=== PATIENT | male | born 1980 | race Caucasian/White ===

== ENCOUNTER 2017-02-22 13:24 | Outpatient (CLI) | payer OTHER | END 2017-02-22 13:25 | disposition home or self-care (01) | LOC: SC 13:24 | PROVIDERS: ATTEND Internal Medicine Pulmonary Disease | DX: R09.02 Hypoxemia (principal); R06.83 Snoring; I10 Essential (primary) hypertension | CPT/HCPCS: 99203; 99212 ==

== ENCOUNTER 2017-04-05 19:30 | Outpatient (CLI) | payer OTHER | END 2017-04-05 19:31 | disposition home or self-care (01) | LOC: SC 19:30 | PROVIDERS: ATTEND Internal Medicine Pulmonary Disease | DX: G47.61 Periodic limb movement disorder (principal); I10 Essential (primary) hypertension | CPT/HCPCS: 95810 ==

== ENCOUNTER 2017-04-17 11:17 | Outpatient (CLI) | payer OTHER | END 2017-04-17 11:18 | disposition home or self-care (01) | LOC: SC 11:17 | PROVIDERS: ATTEND Specialist | DX: R06.83 Snoring (principal) | CPT/HCPCS: 99212; 99214 ==

== ENCOUNTER 2017-10-15 10:17 | Emergency (ER) | payer OTHER ==
[2017-10-15 11:24] LABS: BASOPHILS % (AUTO) 0.4 %; EOSINOPHILS # (AUTO) 0.1 10^3/uL (0.0-0.7); EOSINOPHILS % (AUTO) 1.2 %; HGB - HEMOGLOBIN 16.7 g/dL (14.0-18.0); LYMPHOCYTES # (AUTO) 0.6 10^3/uL (1.5-3.5); LYMPHOCYTES % (AUTO) 6.6 %; MEAN CORPUSCULAR HEMOGLOBIN 30.6 pg (27.0-31.0); MEAN CORPUSCULAR VOLUME 87.5 fL (80.0-94.0); MEAN PLATELET VOLUME 7.8 fL (7.4-11.4); MONOCYTES # (AUTO) 0.4 10^3/uL (0.0-1.0); MONOCYTES % (AUTO) 4.1 %; NEUTROPHILS # (AUTO) 8.5 10^3/uL (1.5-6.6); NEUTROPHILS % (AUTO) 87.7 %; PLT - PLATELET COUNT 236 10^3/uL (130-450); RED BLOOD COUNT 5.46 10^6/uL (4.70-6.10); RED CELL DISTRIBUTION WIDTH 13.7 % (12.0-15.0); WHITE BLOOD COUNT 9.7 x10^3/uL (4.8-10.8)
[2017-10-15 11:27] LABS: BILIRUBIN,URINE NEGATIVE (NEGATIVE); GLUCOSE, URINE (UA) NEGATIVE (NEGATIVE); KETONES,URINE (UA) NEGATIVE (NEGATIVE); LEUKOCYTE ESTERASE, URINE NEGATIVE (NEGATIVE); NITRITE,URINE NEGATIVE (NEGATIVE); OCCULT BLOOD,URINE NEGATIVE (NEGATIVE); PH,URINE 6.5 PH (5.0-7.5); PROTEIN,URINE NEGATIVE (NEGATIVE); UROBILINOGEN,URINE 0.2 (NORMAL) E.U./dL (NORMAL)
[2017-10-15 11:36] LABS: ALBUMIN 5.3 g/dL (3.2-5.5); ALBUMIN/GLOBULIN RATIO 1.7 (1.0-2.2); CALCIUM 9.6 mg/dL (8.5-10.3); CREATININE 1.2 mg/dL (0.6-1.2); TOTAL PROTEIN 8.5 g/dL (6.7-8.2)
[2017-10-15 11:54] LABS: CLARITY,URINE CLEAR (CLEAR)
--- NOTE | 2017-10-15 12:55 | ED Physician Documentation ---
PD HPI NVD - Stated complaint Stated Complaint: N/V/D - Chief complaint Chief Complaint: Abd Pain - History obtained from History obtained from: Patient - History of Present Illness Timing - onset: How many hours ago (6), Today (at about 4 am; felt okay going to bed last night and felt normal yesterday. Family not sick.) Timing - duration: Hours Timing - details: Abrupt onset, Still present Associated symptoms: Abdominal pain (crampy upper abd; mostly the vomiting an ddiarrhea symptoms were the main complaint), Loss of appetite. No: Fever, Hematemesis, Hematochezia, Dizzy, Near syncope / syncope Contributing factors: No: Sick contact, Bad food, Travel, Recent antibiotics Improved by: No: Vomiting Worsened by: Eating Similar symptoms before: Has not had sx before Recently seen: Not recently seen Review of Systems Constitutional: denies: Fever Nose: denies: Rhinorrhea / runny nose, Congestion Throat: denies: Sore throat Cardiac: denies: Chest pain / pressure Respiratory: denies: Cough GI: reports: Abdominal Pain, Nausea, Vomiting, Diarrhea : denies: Dysuria, Frequency Skin: denies: Rash, Lesions Musculoskeletal: denies: Neck pain, Back pain PD PAST MEDICAL HISTORY - Past Medical History Past Medical History: Yes Cardiovascular: Hypertension - Past Surgical History Past Surgical History: Yes - Present Medications Home Medications: Ambulatory Orders Medication Instructions Recorded Confirmed Famotidine [Pepcid] 20 mg PO ONCE #15 tablet 10/15/17 Gabapentin 300 mg PO TID 10/15/17 10/15/17 Lisinopril/Hydrochlorothiazide 1 each PO DAILY 10/15/17 10/15/17 [Lisinopril-Hctz 10-12.5 mg Tab] Ondansetron Odt [Zofran] 4 mg TL Q6H PRN #15 tablet 10/15/17 Tramadol HCl 50 mg PO Q6H PRN #15 tablet 10/15/17 - Allergies Allergies/Adverse Reactions: Allergies Allergy/AdvReac Type Severity Reaction Status Date / Time No Known Drug Allergies Allergy Verified 10/15/17 12:54 - Social History Does the pt smoke?: No Smoking Status: Never smoker Does the pt drink ETOH?: No Does the pt have substance abuse?: No - Immunizations Immunizations are current?: Yes PD ED PE NORMAL - Vitals Vital signs reviewed: Yes - General General: Alert and oriented X 3, Well developed/nourished, Other (holding emesis bag; looks like he does not feel well. conversant and alert. ) - HEENT HEENT: Ears normal, Pharynx benign. No: Moist mucous membranes - Neck Neck: Supple, no meningeal sign, No adenopathy - Cardiac Cardiac: RRR (tachycardic though), No murmur - Respiratory Respiratory: Clear bilaterally - Abdomen Abdomen: Normal bowel sounds, Soft, Non tender, Non distended, No organomegaly - Male Male : Deferred - Rectal Rectal: Deferred - Back Back: No CVA TTP - Derm Derm: Warm and dry. No: Normal color (pale) - Extremities Extremities: No deformity, Normal ROM s pain - Neuro Neuro: Alert and oriented X 3, No motor deficit, Normal speech Results - Vitals Vitals: Oxygen O2 Source Room air - Labs Labs: Laboratory Tests 10/15/17 10/15/17 10/15/17 11:05 11:20 11:20 WBC 9.7 RBC 5.46 Hgb 16.7 Hct 47.7 MCV 87.5 MCH 30.6 MCHC 35.0 RDW 13.7 Plt Count 236 MPV 7.8 Neut # 8.5 H Lymph # 0.6 L Grand # 0.4 Eos # 0.1 Baso # 0.0 Absolute Nucleated RBC 0.00 Nucleated RBC % 0.0 Sodium 135 Potassium 4.3 Chloride 98 L Carbon Dioxide 29 Anion Gap 8.0 BUN 14 Creatinine 1.2 Estimated GFR (MDRD) 68 L Glucose 111 H Calcium 9.6 Total Bilirubin 1.0 AST 33 ALT 53 Alkaline Phosphatase 49 Total Protein 8.5 H Albumin 5.3 Globulin 3.2 Albumin/Globulin Ratio 1.7 Lipase 10 L Urine Color DARK YELLOW Urine Clarity CLEAR Urine pH 6.5 Ur Specific [place] 1.015 Urine Protein NEGATIVE Urine Glucose (UA) NEGATIVE Urine Ketones NEGATIVE Urine Occult Blood NEGATIVE Urine Nitrite NEGATIVE Urine Bilirubin NEGATIVE Urine Urobilinogen 0.2 (NORMAL) Ur Leukocyte Esterase NEGATIVE Ur Microscopic Review NOT INDICATED Urine Culture Comments NOT INDICATED PD MEDICAL DECISION MAKING - ED course Complexity details: re-evaluated patient (improved with IV fluids and meds. Still mild nausea but able to take fluids. ), considered differential, d/w patient Departure - Departure Disposition: 01 Home, Self Care Clinical Impression: Nausea vomiting and diarrhea, Viral gastroenteritis Condition: Stable Record reviewed to determine appropriate education?: Yes Instructions: ED Gastroenteritis Viral Follow-Up: MICHAEL DANIELS MD [Primary Care Provider] - Prescriptions: Famotidine [Pepcid] 20 mg PO ONCE #15 tablet Ondansetron Odt [Zofran] 4 mg TL Q6H PRN #15 tablet PRN Reason: Nausea / Vomiting Tramadol HCl 50 mg PO Q6H PRN #15 tablet PRN Reason: Pain Comments: Home and rest. Drink small frequent fluids. Start with bland food and progress diet as able. Tylenol or ibuprofen if needed for pain and add tramadol if needed for worse pains and headache. Ondansetron if needed for nausea and vomiting and take 1-2 every 4-6 hours. Rest for 1-2 days. Recheck if not better in a couple of days. Your stomach will be irritated from this and take famotidine daily for 1-2 weeks. Forms: Activity restrictions Discharge Date/Time: 10/15/17 15:07
[2017-10-15] MEDS ORDERED: FAMOTIDINE 20 MG/2 ML VIAL IVP STA (13:10)
[2017-10-15] MEDS ORDERED: ONDANSETRON 4 MG/2 ML VIAL IVP STA ×2 (13:10→14:12)
[2017-10-15] MEDS ORDERED: SODIUM CHLORIDE 0.9% 1,000 ML IV ONE ×2 (13:10→13:11)
[2017-10-15] MEDS ORDERED: KETOROLAC 60 MG/2 ML VIAL IVP STA (13:10)
[2017-10-15] MEDS ORDERED: ACETAMINOPHEN 1,000 MG/100 ML 100 ML IV STA (14:12)
[2017-10-15 15:08] VITALS: BP 121/75
== END 2017-10-15 15:07 | disposition home or self-care (01) ==
LOC: ED 10:17
DX: A08.4 Viral intestinal infection, unspecified (principal); I10 Essential (primary) hypertension
CPT/HCPCS: 36415; 80053; 81003; 83690; 85025; 96361; 96365; 96375; 96376; 99283; J0131; 81001; 87086

== ENCOUNTER 2019-09-21 09:44 | Emergency (ER) | payer OTHER ==
--- NOTE | 2019-09-21 10:15 | ED Physician Documentation ---
PD HPI URI - Stated complaint Stated Complaint: SOA,FEVER,COUGH - Chief complaint Chief Complaint: Fever - History obtained from History obtained from: Patient - History of Present Illness Timing - onset: How many weeks ago (has had some cough and congestion, aches for a week. Was starting to feel better but now with worse cough and feeling chest tightness. Feverish still. Feels not well enough for work.) Associated symptoms: Fever, Nasal congestion, Productive cough, Dyspnea (the past 2 days). No: NVD Contributing factors: No: Sick contact, Travel, Immunocompromised, COPD / asthma Similar symptoms before: Has not had sx before Recently seen: Not recently seen Review of Systems Constitutional: reports: Fever, Chills Ears: denies: Ear pain, Drainage/discharge Nose: reports: Rhinorrhea / runny nose, Congestion Throat: denies: Sore throat Cardiac: denies: Chest pain / pressure Respiratory: reports: Dyspnea, Cough, Wheezing GI: denies: Abdominal Pain, Nausea, Vomiting, Diarrhea Neurologic: reports: Headache. denies: Confused, Altered mental status PD PAST MEDICAL HISTORY - Past Medical History Cardiovascular: Hypertension, Pulmonary embolism Respiratory: Asthma Neuro: None, Peripheral neuropathy Endocrine/Autoimmune: None GI: None : None Psych: None Musculoskeletal: Chronic back pain Derm: Eczema - Past Surgical History Past Surgical History: Yes - Present Medications Home Medications: Ambulatory Orders Medication Instructions Recorded Confirmed Gabapentin 600 mg PO TID 10/15/17 09/21/19 Lisinopril/Hydrochlorothiazide 1 each PO DAILY 10/15/17 09/21/19 [Lisinopril-Hctz 10-12.5 mg Tab] Albuterol Sulfate [Albuterol 2 puffs IH QID #1 hfa.aer.ad 09/21/19 Sulfate Hfa] Benzonatate [Tessalon Perle] 100 mg PO TID PRN #30 capsule 09/21/19 Doxycycline Monohydrate 100 mg PO BID #14 tablet 09/21/19 dexAMETHasone [Decadron] 4 mg PO DAILY #5 tablet 09/21/19 - Allergies Allergies/Adverse Reactions: Allergies Allergy/AdvReac Type Severity Reaction Status Date / Time No Known Drug Allergies Allergy Verified 09/21/19 09:48 - Social History Does the pt smoke?: No Smoking Status: Never smoker Does the pt drink ETOH?: No Does the pt have substance abuse?: No - Immunizations Immunizations are current?: Yes - POLST Patient has POLST: No PD ED PE NORMAL - Vitals Vital signs reviewed: Yes - General General: Alert and oriented X 3, No acute distress, Well developed/nourished - HEENT HEENT: Ears normal, Pharynx benign - Neck Neck: Supple, no meningeal sign, No adenopathy - Cardiac Cardiac: RRR, No murmur - Respiratory Respiratory: No: Clear bilaterally (midl coarse sounds right mid lung field. Else clear with respirations but wheezing sound with cough. ) - Abdomen Abdomen: Soft, Non tender - Derm Derm: Normal color, Warm and dry - Extremities Extremities: No tenderness to palpate, Normal ROM s pain, No edema, No calf tenderness / cord - Neuro Neuro: Alert and oriented X 3, No motor deficit, Normal speech Results - Vitals Vitals: Vital Signs - 24 hr 09/21/19 09/21/19 09/21/19 09:48 10:07 11:07 Temperature 36.7 C 37 C 36.9 C Heart Rate 77 66 76 Respiratory 18 20 18 Rate Blood Pressure 148/107 H 147/105 H 143/89 H O2 Saturation 97 97 97 Oxygen O2 Source Room air PD MEDICAL DECISION MAKING - ED course Complexity details: considered differential (has had URI symptoms for a week and now worse cough and feverish. ), d/w patient Departure - Departure Disposition: 01 Home, Self Care Clinical Impression: Upper respiratory infection Qualifiers: URI type: unspecified URI Qualified Code(s): J06.9 - Acute upper respiratory infection, unspecified Acute bronchitis Qualifiers: Bronchitis organism: unspecified organism Qualified Code(s): J20.9 - Acute bronchitis, unspecified Condition: Stable Record reviewed to determine appropriate education?: Yes Instructions: ED Upper Resp Infec Abx Tx Follow-Up: MICHAEL DANIELS MD [Primary Care Provider] - Prescriptions: Albuterol Sulfate [Albuterol Sulfate Hfa] 2 puffs IH QID #1 hfa.aer.ad Benzonatate [Tessalon Perle] 100 mg PO TID PRN #30 capsule PRN Reason: Cough dexAMETHasone [Decadron] 4 mg PO DAILY #5 tablet Doxycycline Monohydrate 100 mg PO BID #14 tablet Comments: Sounds like you are still sick in may be transforming into bronchitis. Still stay off work for another 3 days. Stay well-hydrated. Tylenol or ibuprofen for fevers or pains. Use an albuterol inhaler 2 puffs 4 times a day to improve airflow and reduce coughing. Decadron steroid for bronchial inflammation will help as well. Add Tessalon if needed for cough suppression. Add doxycycline for potential bacterial involvement at this time. Recheck if not improving well over the next few days. Forms: Activity restrictions Discharge Date/Time: 09/21/19 11:11
[2019-09-21] MEDS ORDERED: CHERRY SYRUP 10 ML UDC PO ONE (10:26)
[2019-09-21] MEDS ORDERED: DEXAMETHASONE 10 MG/ML VIAL PO STA (10:26)
[2019-09-21] MEDS ORDERED: BENZONATATE 100 MG CAPSULE PO STA (10:26)
[2019-09-21] MEDS ORDERED: DOXYCYCLINE 100 MG TABLET PO STA (10:26)
[2019-09-21 11:08] VITALS: BP 143/89
== END 2019-09-21 11:11 | disposition home or self-care (01) ==
LOC: ED 09:44
DX: J06.9 Acute upper respiratory infection, unspecified (principal); J20.9 Acute bronchitis, unspecified; J45.909 Unspecified asthma, uncomplicated; I10 Essential (primary) hypertension
CPT/HCPCS: 99284; A9270

== ENCOUNTER 2019-09-30 18:56 | Emergency (ER) | payer OTHER ==
--- NOTE | 2019-09-30 19:19 | ED Physician Documentation ---
History of Present Illness - Stated complaint Stated Complaint: ABD PX - Chief complaint Chief Complaint: Abd Pain - Additonal information Additional information: This is a 38-year-old male who presents with epigastric pain for last 5 days. He was seen and diagnosed with bronchitis last Sunday, he was given dexamethasone as well as doxycycline, he took these and after taking them he developed some dull epigastric discomfort. He denies nausea, vomiting, diarrhea. He denies any chest pain or shortness of breath. Discomfort is been persistent not worsening or getting better, so he presented tonight. It does not change with food he is able to eat regularly without issue. He denies any history of abdominal surgeries. Pain is currently mild to moderate in severity, nonradiating. Review of Systems Constitutional: denies: Fever Cardiac: denies: Chest pain / pressure Respiratory: denies: Dyspnea GI: reports: Abdominal Pain. denies: Nausea, Vomiting : denies: Dysuria Skin: denies: Rash Immunocompromised: denies: Immunocompromised PD PAST MEDICAL HISTORY - Past Medical History Cardiovascular: Hypertension, Pulmonary embolism Respiratory: Asthma Neuro: None, Peripheral neuropathy Endocrine/Autoimmune: None GI: None : None Psych: None Musculoskeletal: Chronic back pain Derm: Eczema - Past Surgical History Past Surgical History: Yes - Present Medications Home Medications: Ambulatory Orders Medication Instructions Recorded Confirmed Gabapentin 600 mg PO TID 10/15/17 09/21/19 Lisinopril/Hydrochlorothiazide 1 each PO DAILY 10/15/17 09/21/19 [Lisinopril-Hctz 10-12.5 mg Tab] Albuterol Sulfate [Albuterol 2 puffs IH QID #1 hfa.aer.ad 09/21/19 Sulfate Hfa] Benzonatate [Tessalon Perle] 100 mg PO TID PRN #30 capsule 09/21/19 Doxycycline Monohydrate 100 mg PO BID #14 tablet 09/21/19 dexAMETHasone [Decadron] 4 mg PO DAILY #5 tablet 09/21/19 Famotidine [Acid Controller] 20 mg PO DAILY #14 tablet 09/30/19 Omeprazole 40 mg PO DAILY 14 Days #30 09/30/19 capsule.dr - Allergies Allergies/Adverse Reactions: Allergies Allergy/AdvReac Type Severity Reaction Status Date / Time No Known Drug Allergies Allergy Verified 09/30/19 19:01 - Social History Does the pt smoke?: No Smoking Status: Never smoker Does the pt drink ETOH?: No Does the pt have substance abuse?: No - Immunizations Immunizations are current?: Yes - POLST Patient has POLST: No PD ED PE NORMAL - Vitals Vital signs reviewed: Yes - General General: Alert and oriented X 3, No acute distress - HEENT HEENT: PERRL - Neck Neck: Supple, no meningeal sign - Cardiac Cardiac: RRR, No murmur - Respiratory Respiratory: Clear bilaterally - Abdomen Abdomen: Other (Abdomen is flat, non-distended. Patient has mild tenderness in the midepigastrium, no specific right upper quadrant or left upper quadrant tenderness, negative Garnica sign, no lower abdominal tenderness to deep palpation. No guarding.) - Derm Derm: Warm and dry - Extremities Extremities: No deformity - Neuro Neuro: Alert and oriented X 3 - Psych Psych: Normal mood, Normal affect Results - Vitals Vitals: Oxygen O2 Source Room air - EKG (time done) 19:30 Other comments: Other comments (Rate 59, Rhythm sinus, there is no significant ST elevation or depression, no abnormal T wave changes. Intervals within normal limits.) - Labs Labs: Laboratory Tests 09/30/19 09/30/19 19:15 19:15 WBC 5.8 RBC 4.94 Hgb 15.3 Hct 44.3 MCV 89.7 MCH 31.0 MCHC 34.5 RDW 13.2 Plt Count 223 MPV 9.6 Neut # (Auto) 2.5 Lymph # (Auto) 2.6 [place] # (Auto) 0.4 Eos # (Auto) 0.2 Baso # (Auto) 0.0 Absolute Nucleated RBC 0.00 Nucleated RBC % 0.0 Sodium 139 Potassium 4.0 Chloride 99 L Carbon Dioxide 30 Anion Gap 10.0 BUN 14 Creatinine 1.0 Estimated GFR (MDRD) 83 L Glucose 121 H Calcium 10.4 H Total Bilirubin 0.9 AST 31 ALT 58 Alkaline Phosphatase 42 Total Protein 7.5 Albumin 4.5 Globulin 3.0 Albumin/Globulin Ratio 1.5 Lipase 29 PD MEDICAL DECISION MAKING - ED course Complexity details: considered differential (Gastritis, peptic ulcer disease, Medication side effect, biliary colic/cholecystitis, pancreatitis, ACS) ED course: Patient is very well-appearing on examination, he has minimal epigastric tenderness to palpation. His vital signs are within normal limits. EKG shows no convincing signs of ischemia, and given the location of discomfort in his rep roducible pain with palpation cardiac cause of his epigastric discomfort is highly unlikely. Labs are obtained his CBC is unremarkable and his CMP also unremarkable with no signs of LFT elevations, lipase is normal. He was given a GI cocktail and famotidine, afterwards he did feel improvement. Gastritis appears likely, do not see sign of acute abdominal pathology at this time, especially given he is eating normally and has no nausea or vomiting or other concerning symptoms. No focal RUQ tenderness, negative Garnica's sign. We discussed return precautions, trial of PPI plus H2 trisha, and PCP follow-up, patient was discharged home in good condition. Departure - Departure Disposition: Home, Self Care Clinical Impression: Epigastric pain Condition: Good Instructions: ED Epigastric Pain [facility] Follow-Up: MICHAEL DANIELS MD [Primary Care Provider] - Prescriptions: Famotidine [Acid Controller] 20 mg PO DAILY #14 tablet Omeprazole 40 mg PO DAILY 14 Days #30 capsule. Comments: Your labs and EKG today were reassuring. This may be gastritis or irritation of your stomach, try the acid blocking medications as we discussed. If you are developing worsening or new concerning symptoms such as increasing pain pain that is localizing to one side of abdomen such as the right upper quadrant or right lower quadrant, vomiting, fever, return to the emergency department. Discharge Date/Time: 09/30/19 20:56
[2019-09-30] MEDS ORDERED: GI COCKTAIL 120 ML BOTTLE PO STA (19:21)
[2019-09-30] MEDS ORDERED: FAMOTIDINE 20 MG/2 ML VIAL IVP STA (19:24)
[2019-09-30 19:28] LABS: BASOPHILS % (AUTO) 0.7 %; EOSINOPHILS # (AUTO) 0.2 10^3/uL (0.0-0.7); EOSINOPHILS % (AUTO) 3.6 %; HGB - HEMOGLOBIN 15.3 g/dL (14.0-18.0); LYMPHOCYTES # (AUTO) 2.6 10^3/uL (1.5-3.5); LYMPHOCYTES % (AUTO) 45.5 %; MEAN CORPUSCULAR HGB CONC 34.5 g/dL (32.0-36.0); MEAN CORPUSCULAR VOLUME 89.7 fL (80.0-94.0); MEAN PLATELET VOLUME 9.6 fL (7.4-11.4); MONOCYTES # (AUTO) 0.4 10^3/uL (0.0-1.0); MONOCYTES % (AUTO) 6.2 %; NEUTROPHILS # (AUTO) 2.5 10^3/uL (1.5-6.6); NEUTROPHILS % (AUTO) 43.7 %; PLT - PLATELET COUNT 223 10^3/uL (130-450); RED BLOOD COUNT 4.94 10^6/uL (4.70-6.10); RED CELL DISTRIBUTION WIDTH 13.2 % (12.0-15.0); WHITE BLOOD COUNT 5.8 x10^3/uL (4.8-10.8)
[2019-09-30 19:40] LABS: ALBUMIN 4.5 g/dL (3.2-5.5); ALBUMIN/GLOBULIN RATIO 1.5 (1.0-2.2); BILIRUBIN,TOTAL 0.9 mg/dL (0.2-1.0); CALCIUM 10.4 mg/dL (8.5-10.3); TOTAL PROTEIN 7.5 g/dL (6.7-8.2)
[2019-09-30] MEDS ORDERED: MAG HYDROX/AL HYDROX/SIMETH 30 ML UDC PO STA (19:44)
[2019-09-30 20:43] VITALS: BP 126/90
[2019-09-30] MEDS ORDERED: PANTOPRAZOLE 40 MG VIAL IVP STA (20:47)
== END 2019-09-30 20:56 | disposition home or self-care (01) ==
LOC: ED 18:56
DX: R10.13 Epigastric pain (principal); I10 Essential (primary) hypertension
CPT/HCPCS: 36415; 80053; 83690; 85025; 93005; 96374; 96375; 99283; 99284; A9270

== ENCOUNTER 2021-04-07 12:04 | Emergency (ER) | payer OTHER ==
[2021-04-07 12:36] LABS: RAPID STREP SCREEN Negative (Negative)
[2021-04-07] MEDS ORDERED: DEXAMETHASONE 10 MG/ML VIAL PO STA (13:48)
[2021-04-07] MEDS ORDERED: CHERRY SYRUP 10 ML UDC PO ONE (13:48)
--- NOTE | 2021-04-07 14:09 | ED Physician Documentation ---
History of Present Illness - Stated complaint Stated Complaint: SOAR THROAT/BAUGH/COUGH - Chief complaint Chief Complaint: Heent - Additonal information Additional information: 40-year-old male presents emergency department for evaluation of 4 days sore throat. He was here in the emergency department with his son similarly about 5 days ago. His son tested positive for strep and is currently on penicillin. He has no fevers. No dysphonia. No tonsillar exudate. He does have tender anterior cervical lymphadenopathy. No cough. [place] He is fully vaccinated for COVID-19. Review of Systems Constitutional: denies: Fever, Chills, Myalgias Eyes: reports: Reviewed and negative Ears: reports: Reviewed and negative Nose: denies: Rhinorrhea / runny nose, Congestion Throat: reports: Sore throat. denies: Swollen tonsils, Swallowed foreign body Cardiac: reports: Reviewed and negative Respiratory: reports: Reviewed and negative GI: reports: Reviewed and negative : reports: Reviewed and negative PD PAST MEDICAL HISTORY - Past Medical History Cardiovascular: Hypertension, Pulmonary embolism Respiratory: Asthma Neuro: None, Peripheral neuropathy Endocrine/Autoimmune: None GI: None : None Psych: None Musculoskeletal: Chronic back pain Derm: Eczema - Past Surgical History Past Surgical History: Yes - Present Medications Home Medications: Ambulatory Orders Medication Instructions Recorded Confirmed Gabapentin 600 mg PO TID 10/15/17 09/21/19 Lisinopril/Hydrochlorothiazide 1 each PO DAILY 10/15/17 09/21/19 [Lisinopril-Hctz 10-12.5 mg Tab] Albuterol Sulfate [Albuterol 2 puffs IH QID #1 hfa.aer.ad 09/21/19 Sulfate Hfa] Benzonatate [Tessalon Perle] 100 mg PO TID PRN #30 capsule 09/21/19 Doxycycline Monohydrate 100 mg PO BID #14 tablet 09/21/19 dexAMETHasone [Decadron] 4 mg PO DAILY #5 tablet 09/21/19 Famotidine [Acid Controller] 20 mg PO DAILY #14 tablet 09/30/19 Omeprazole 40 mg PO DAILY 14 Days #30 09/30/19 capsule.dr - Allergies Allergies/Adverse Reactions: Allergies Allergy/AdvReac Type Severity Reaction Status Date / Time No Known Drug Allergies Allergy Verified 09/30/19 19:01 - Social History Does the pt smoke?: No Smoking Status: Never smoker Does the pt drink ETOH?: No Does the pt have substance abuse?: No - Immunizations Immunizations are current?: Yes - POLST Patient has POLST: No PD ED PE NORMAL - General General: Alert and oriented X 3, No acute distress - HEENT HEENT: PERRL, Ears normal, Moist mucous membranes, Other (Mild posterior oropharynx erythema without tonsillar exudate. Uvula is midline. No soft palate assymmetry or swelling. Normal phonation. Full range of motion of ne ck.) - Neck Neck: Supple, no meningeal sign. No: No adenopathy (Tender bilateral anterior cervical lymphadenopathy.) - Cardiac Cardiac: RRR, No murmur - Respiratory Respiratory: Clear bilaterally - Abdomen Abdomen: Normal bowel sounds, Soft, Non tender, Non distended - Back Back: No CVA TTP, No spinal TTP - Derm Derm: Normal color, Warm and dry, No rash - Extremities Extremities: No deformity, No tenderness to palpate, Normal ROM s pain Results - Vitals Vitals: Vital Signs - 24 hr 04/07/21 12:19 Temperature 36.4 C L Heart Rate 88 Respiratory 16 Rate Blood Pressure 142/93 H O2 Saturation 99 Oxygen O2 Source Room air - Labs Labs: Laboratory Tests 04/07/21 12:24 Group A Strep Rapid Negative PD MEDICAL DECISION MAKING - ED course Complexity details: reviewed results, re-evaluated patient, considered differential, d/w patient ED course: 40-year-old male presents emergency department for evaluation of a sore throat that began 4 days ago. His son recently tested positive for strep and is on penicillin. This gentleman has a negative rapid strep today. He has no tonsillar exudate or fevers. Will defer antibiotics unless the culture is positive. Given Decadron here in the emergency department. On exam no findings consistent with an RPA or peritonsillar abscess. Emergent worrisome return precautions were discussed. Departure - Departure Disposition: 01 Home, Self Care Clinical Impression: Pharyngitis Qualifiers: Pharyngitis/tonsillitis etiology: unspecified etiology Qualified Code(s): J02.9 - Acute pharyngitis, unspecified Condition: Stable Record reviewed to determine appropriate education?: Yes Instructions: ED Strep Pharyngitis Poss Comments: Joey you are seen in the ER today for a sore throat. Your rapid strep is negative. We are sending the swab for culture. If it does show that you have a bacterial infection we will notify you and call in antibiotics. You are given a one-time dose of Decadron, a steroid here in the emergency department which should help with the sore throat that you have been experiencing. I recommend that you continue to gargle with warm salt water. If any point you feel your symptoms are worsening, you develop fevers higher than 103, you cannot swallow normally or have a high-pitched voice please return immediately to the ER for a second evaluation.
[2021-04-07 14:13] VITALS: BP 139/91
== END 2021-04-07 14:14 | disposition home or self-care (01) ==
LOC: ED 12:04
DX: J02.9 Acute pharyngitis, unspecified (principal)
CPT/HCPCS: 87070; 87430; 99283; A9270

== ENCOUNTER 2021-06-04 21:38 | Emergency (ER) | payer OTHER ==
--- NOTE | 2021-06-05 00:31 | XRAY Report ---
PROCEDURE: Foot 3 View RT INDICATIONS: distal 1st metatarsal pain TECHNIQUE: 3 views of the foot were acquired. COMPARISON: None FINDINGS: Bones: No fractures or dislocations. No suspicious bony lesions. Soft tissues: No tibiotalar joint effusion. Achilles tendon appears normal. IMPRESSION: No visualized acute fracture or dislocation. However, occult injury cannot be excluded. Recommend eevlia rt interval imaging follow-up in 7-10 days as clinically indicated for additional evaluation. Reviewed by: Samia Livingston MD on 06/05/2021 12:30 AM [facility] Approved by: Samia Livingston MD on 06/05/2021 12:30 AM [facility] Station ID: [id number]
--- NOTE | 2021-06-05 00:52 | ED Physician Documentation ---
PD HPI LOWER EXT INJURY - Stated complaint Stated Complaint: R FT PX - Chief complaint Chief Complaint: Ext Problem - History obtained from History obtained from: Patient - History of Present Illness PD HPI LOW EXT INJURY LOCATION: Right, Foot Type of injury: Other (The patient has peripheral neuropathy to both of his feet and is uncertain how he may have injured this.) Timing - onset: How many weeks ago (2) Timing - duration: Days (4) Timing - details: Gradual onset, Still present Improved by: Rest Worsened by: Moving, Palpating Associated symptoms: Swelling, Discolored. No: Weakness, Numbness Contributing factors: No: Anticoagulated Similar symptoms before: Has not had sx before Recently seen: Not recently seen - Additional information Additional information: 40-year-old male with a history of spinal surgery resulting in numbness to the dorsum of both of his feet has now developed pain to the right great toe over the medial aspect of the foot. He does not have pain just with movement of the toe joint but with direct palpation over the distal metacarpal. He has some redness and swelling associated with this and very tender skin. He denies difficulty with the bed sheets and does not have a history of gout. Review of Systems Constitutional: denies: Fever Ears: denies: Ear pain Nose: denies: Congestion Throat: denies: Sore throat Respiratory: denies: Cough GI: denies: Vomiting PD PAST MEDICAL HISTORY - Past Medical History Past Medical History: Yes Cardiovascular: Hypertension, Pulmonary embolism Respiratory: Asthma Neuro: None, Peripheral neuropathy Endocrine/Autoimmune: None GI: None : None Psych: None Musculoskeletal: Chronic back pain Derm: Eczema - Past Surgical History Past Surgical History: Yes - Present Medications Home Medications: Ambulatory Orders Medication Instructions Recorded Confirmed Gabapentin 900 mg PO TID 10/15/17 06/04/21 Lisinopril/Hydrochlorothiazide 1 each PO DAILY 06/04/21 06/04/21 [Zestoretic 20-12.5 mg Tablet] Amox/Clav 875/125 [Augmentin 1 tablet PO Q12H 10 Days #10 tablet 06/05/21 875/125 Tab] - Allergies Allergies/Adverse Reactions: Allergies Allergy/AdvReac Type Severity Reaction Status Date / Time No Known Drug Allergies Allergy Verified 09/30/19 19:01 - Social History Does the pt smoke?: No Smoking Status: Never smoker Does the pt drink ETOH?: No Does the pt have substance abuse?: No - Immunizations Immunizations are current?: Yes - POLST Patient has POLST: No PD ED PE NORMAL - General General: Alert and oriented X 3, No acute distress, Well developed/nourished - HEENT HEENT: Atraumatic, PERRL, EOMI - Respiratory Respiratory: No respiratory distress - Derm Derm: Normal color, Warm and dry, No rash - Extremities Extremities: Other (There is swelling and point tenderness over the distal first metatarsal. On the right foot. There is some erythema overlying this with easy blanching. The area is mildly tender. There is not significant pain associated with movement of the joint itself. 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, No motor deficit, No sensory deficit, Normal speech Eye Opening: Spontaneous Motor: Obeys Commands Verbal: Oriented GCS Score: 15 - Psych Psych: Normal mood, Normal affect Results - Vitals Vitals: Vital Signs - 24 hr 06/04/21 06/05/21 06/05/21 21:40 00:57 01:01 Temperature 36.1 C L 36.1 C L Heart Rate 87 74 74 Respiratory 16 18 16 Rate Blood Pressure 126/88 H 125/86 H 125/86 H O2 Saturation 100 97 97 Oxygen O2 Source Room air - Rads (name of study) foot Radiology: Prelim report reviewed (Impression: No visualized acute fracture or dislocation.), EMP read indepedently, See rad report PD MEDICAL DECISION MAKING - ED course Complexity details: considered differential, d/w patient ED course: 40-year-old male with poor sensation to the dorsum of the feet and appears to be developing a bunion on the right side and there is significant erythema that is blanching and I'm concerned about the possibility of some mild cellulitis. I have indicated to the patient that the symptoms are typical for a bunion and he will need to use conservative therapy but may eventually need surgery. I have indicated the follow-up with us should be with the foot doctor. He believes he has adequate resources to get into be able to see the foot doctor. Today we have started him on some on some Augmentin. I told him that I don't really know whether this is necessary and the follow up should be with the foot doctor. Departure - Departure Disposition: 01 Home, Self Care Clinical Impression: Bunion of great toe of right foot Cellulitis Qualifiers: Site of cellulitis: extremity Site of cellulitis of extremity: lower extremity Laterality: right Qualified Code(s): L03.115 - Cellulitis of right lower limb Condition: Stable Instructions: ED Ryann, ED Infec Skin Cellulitis Follow-Up: [facility] [Provider Group] Prescriptions: Amox/Clav 875/125 [Augmentin 875/125 Tab] 1 tablet PO Q12H 10 Days #10 tablet Comments: Joey, today it looks like you have the beginning of a bunion formation on your right foot. There is inflammation associated with this and an anti-inflammatory like ibuprofen should help with the pain part of this. There is sometimes infection associated with this and we are placing on short short course of antibiotic. The real follow-up with this though should be with the foot doctor and this may eventually require operation. Discharge Date/Time: 06/05/21 01:00
[2021-06-05] MEDS ORDERED: AMOX/CLAV 875 MG/125 MG TABLET PO STA (00:55)
[2021-06-05 00:57] VITALS: BP 125/86
== END 2021-06-05 01:00 | disposition home or self-care (01) ==
LOC: ED 21:38
DX: M21.611 Bunion of right foot (principal); L03.115 Cellulitis of right lower limb; G62.9 Polyneuropathy, unspecified; I10 Essential (primary) hypertension
CPT/HCPCS: 73630; 99283; 99284; A9270

== ENCOUNTER 2021-06-13 14:32 | Outpatient (CLI) | payer OTHER ==
[2021-06-13] MEDS ORDERED: GADOBUTROL 10 MMOL/10 ML VIAL ONE (15:02)
[2021-06-13] MEDS ORDERED: GADOBUTROL 10 MMOL/10 ML VIAL IVP ONE (17:42)
--- NOTE | 2021-06-13 18:35 | MRI Report ---
PROCEDURE: Lumbar Spine W/WO INDICATIONS: NL5/S1 SPINAL FUSION, RLE RADICULOPATHY CONTRAST: IV CONTRAST: Gadavist ml: 10 TECHNIQUE: Noncontrast sagittal T1 spin echo and T2 fast spin echo, sagittal STIR, axial T1 and T2 fast spin ech o through the lumbar spine. In cases with scoliosis, additional coronal T2 fast spin echo may be per formed. After the administration of contrast, sagittal and axial T1 spin echo with fat saturation th rough the lumbar spine. COMPARISON: 06/15/2015 FINDINGS: Image quality: Motion artifact is noted. There is artifact associated with the metallic hardware. Alignment and curvature: There is grade 2 anterolisthesis at the L5-S1 level. Marrow: Marrow is of normal overall signal. No acute vertebral body compression fractures. No susp icious marrow enhancement. Spinal cord: Conus medullaris terminates at the T12 level. Visualized spinal cord demonstrates norm al signal, without suspicious enhancement. Paraspinous soft tissues: No paravertebral masses or abnormal enhancement. T12-L1: Normal in appearance. L1-L2: Normal in appearance. L2-L3: Normal in appearance. L3-L4: Normal in appearance. L4-L5: The disc height is well-preserved. There is loss of disc signal seen. Moderate disc bulge is seen, with a central disc protrusion. Note is made of an annular fissure posteriorly. Mild to mod erate facet hypertrophy is seen. Moderate to severe bilateral neuroforaminal narrowing can be seen at this level. Compression is seen upon the exiting nerve roots. Mild to moderate central canal narrow ing is seen. These degenerative changes have progressed when compared to 2014. L5-S1: Since the prior MRI, fixation change can be seen, with bilateral pedicle screws and a disc spa cer. Moderate disc bulge is seen. There is moderate to severe bilateral neuroforaminal narrowing seen , right worse than left. Compression is seen upon the exiting nerve roots. Mild to moderate central canal narrowing is seen. The degree of central canal narrowing is progressed compared to 2014. IMPRESSION: Lower lumbar spine degenerative changes are seen, which are overall progressed compared to 2015. Interval placement of fixation hardware at L5-S1. Grade 2 L5-S1 anterolisthesis. No abnormal enhancement can be seen. Reviewed by: Srinivas Hernández MD on 06/13/2021 5:34 PM [place] Approved by: Srinivas Hernández MD on 06/13/2021 5:34 PM [facility] Station ID: [id number]
== END 2021-06-13 14:33 | disposition home or self-care (01) ==
LOC: DI 14:32
PROVIDERS: ATTEND Student in an Organized Health Care Education/Training Program
DX: M51.26 Other intervertebral disc displacement, lumbar region (principal); M47.816 Spondylosis without myelopathy or radiculopathy, lumbar region; M48.061 Spinal stenosis, lumbar region without neurogenic claudication; M54.16 Radiculopathy, lumbar region; M43.17 Spondylolisthesis, lumbosacral region; M48.07 Spinal stenosis, lumbosacral region; M54.17 Radiculopathy, lumbosacral region
CPT/HCPCS: 72158; A9585

== ENCOUNTER 2022-01-13 13:08 | Emergency (ER) | payer OTHER ==
[2022-01-13 13:21] VITALS: BP 136/98
[2022-01-13 13:33] LABS: RAPID STREP SCREEN Negative (Negative)
--- NOTE | 2022-01-13 14:41 | ED Physician Documentation ---
PD HPI HEENT - Stated complaint Stated Complaint: THROAT PX - Chief complaint Chief Complaint: Heent - History obtained from History obtained from: Patient - Additional information Additional information: The patient comes to the emergency department chief complaint of sore throat for 2 days. He was diagnosed with COVID on January 07 and mainly had a cough and headache at that time. He denies fever or chills at any time since diagnosis. He has had a little bit of nasal congestion and some mild postnasal drip, but states his come to feel as though he is swallowing glass. The patient denies any throat swelling or difficulty secretions. He denies any other complaints at this time. He states his looked in his throat and saw "white spots" and thought he might have strep. Patient states he has tested positive for strep by culture previously after initial rapid strep test was negative. Review of Systems Ten Systems: 10 systems reviewed and negative Constitutional: reports: Reviewed and negative Eyes: reports: Reviewed and negative Ears: reports: Reviewed and negative Nose: reports: Reviewed and negative Throat: reports: Sore throat Cardiac: reports: Reviewed and negative Respiratory: reports: Reviewed and negative GI: reports: Reviewed and negative : reports: Reviewed and negative Skin: reports: Reviewed and negative Musculoskeletal: reports: Reviewed and negative Neurologic: reports: Reviewed and negative Psychiatric: reports: Reviewed and negative Endocrine: reports: Reviewed and negative Immunocompromised: reports: Reviewed and negative PD PAST MEDICAL HISTORY - Past Medical History Cardiovascular: Hypertension, Pulmonary embolism Respiratory: Asthma Neuro: None, Peripheral neuropathy Endocrine/Autoimmune: None GI: None : None Psych: None Musculoskeletal: Chronic back pain Derm: Eczema - Past Surgical History Past Surgical History: Yes - Present Medications Home Medications: Ambulatory Orders Medication Instructions Recorded Confirmed Gabapentin 900 mg PO TID 10/15/17 06/04/21 Lisinopril/Hydrochlorothiazide 1 each PO DAILY 06/04/21 06/04/21 [Zestoretic 20-12.5 mg Tablet] Amox/Clav 875/125 [Augmentin 1 tablet PO Q12H 10 Days #10 tablet 06/05/21 875/125 Tab] HYDROcodone/ACET 7.5/325 JOELLE 7.5 ml PO Q6HR PRN #100 ml 01/13/22 [Lortab 7.5/325 Joelle] predniSONE [Deltasone] 60 mg PO DAILY 3 Days #9 tablet 01/13/22 - Allergies Allergies/Adverse Reactions: Allergies Allergy/AdvReac Type Severity Reaction Status Date / Time No Known Drug Allergies Allergy Verified 01/13/22 13:17 - Social History Does the pt smoke?: No Smoking Status: Never smoker Does the pt drink ETOH?: No Does the pt have substance abuse?: No - Immunizations Immunizations are current?: Yes - POLST Patient has POLST: No PD ED PE NORMAL - Vitals Vital signs reviewed: Yes - General General: Alert and oriented X 3, No acute distress, Well developed/nourished - HEENT HEENT: Atraumatic, PERRL, EOMI, Moist mucous membranes, Other (No erythema of pharynx. Few scant small white erosions of mucous membrane over uvula and bilateral tonsils. No tonsillar enlargement. Patient is managing secretions well.) - Neck Neck: Supple, no meningeal sign, No adenopathy, Other (No stridor) - Respiratory Respiratory: No respiratory distress - Derm Derm: Warm and dry - Extremities Extremities: No deformity - Neuro Neuro: Alert and oriented X 3 - Psych Psych: Normal mood, Normal affect Results - Vitals Vitals: Vital Signs - 24 hr 01/13/22 13:17 Temperature 36.5 C Heart Rate 94 Respiratory 16 Rate Blood Pressure 136/98 H O2 Saturation 98 Oxygen O2 Source Room air - Labs Labs: Laboratory Tests 01/13/22 13:18 Group A Strep Rapid Negative PD MEDICAL DECISION MAKING - ED course Complexity details: reviewed results, re-evaluated patient, considered differential, d/w patient ED course: Patient was worked up with a strep swab and the preliminary reading was negative. I discussed with the patient that at this point in time his white spots appear to be more like erosions of the mucous membrane and not exudates. Additionally, he has no lymphadenopathy or fever and his tonsils are not enlarged or red. I have discussed with the patient that we will see what his throat culture comes back as and if it is positive for strep, we will call in an antibiotic for him. However, I do not find convincing evidence of a bacterial pharyngitis at this time and will hold off on prescribing antibiotics. I have sent a prescription in for symptomatic medication for the patient. We have discussed symptomatic management at home as well. Departure - Departure Disposition: 01 Home, Self Care Clinical Impression: COVID-19 Pharyngitis Qualifiers: Pharyngitis/tonsillitis etiology: unspecified etiology Qualified Code(s): J02.9 - Acute pharyngitis, unspecified Condition: Stable Instructions: ED Pharyngitis Viral Prescriptions: HYDROcodone/ACET 7.5/325 JOELLE [Lortab 7.5/325 Joelle] 7.5 ml PO Q6HR PRN #100 ml PRN Reason: Pain predniSONE [Deltasone] 60 mg PO DAILY 3 Days #9 tablet Comments: At this point in time, the white erosions on your uvula and tonsils have a viral appearance. Your initial strep test is negative. However, a culture is pending and if positive, we will notify you by phone and call in an antibiotic for you. At this point in time, given the viral appearance of your throat and the lack of fever or enlarged lymph nodes in the neck, we will hold off on antibiotics until we have confirmation of a bacterial infection. Your prescription for pain medication has been electronically transmitted to [facility] pharmacy in [place].
== END 2022-01-13 14:44 | disposition home or self-care (01) ==
LOC: ED 13:08
DX: U07.1 COVID-19 (principal)
CPT/HCPCS: 87070; 87430; 99282; 99283

== ENCOUNTER 2023-03-21 05:56 | Emergency (ER) | payer OTHER ==
[2023-03-21 06:13] VITALS: BP 141/104; O2SAT 99
--- OUTSIDE RECORDS SUMMARY | 2023-03-21 06:25 | EXTERNAL MEDICAL SUMMARY RPT | Continuity of Care Document ---
Author Name Unknown Address [address] [place] [address] Phone Organization [facility] Address [address] [place] [address] Phone Care Team Providers Care Director Of Primary Name Role Phone Unavailable Unavailable Unavailable Jazmin Mcwilliams Unavailable Unavailable Allergies and Intolerances date description facility reaction severity (no date) No Known Drug Allergies [facility] (no julien ction) (no severity) Medications date description facility 2023-01-28 00:00 Levofloxacin [facility] Problems date description facility 2023-01-28 00:00 Epididymitis [facility] Procedures date description facility 2023-01-28 00:00 [facility] Results/Labs test date facility value unit notes Social History date description facility 2023-01-28 00:00 Never smoked tobacco (finding) [facility] Vital Signs date measurement value units 2023-01-28 00:00 BMI 33.5 kg/m2 2023-01-28 00:00 BP_diastolic 90 mmHg 2023-01-28 00:00 BP_systolic 127 mmHg 2023-01-28 00:00 heart_rate 77 /min 2023-01-28 00:00 height_metric 180.34 cm 2023-01-28 00:00 height_standard 71 in 2023-01-28 00:00 o2_saturation 95 % 2023-01-28 00:00 respiration_rate 20 /min 2023-01-28 00:00 temperature_metric 35.94 C 2023-01-28 00:00 temperature_standard 96.7 F 2023-01-28 00:00 weight_metric 108.86 kg 2023-01-28 00:00 weight_standard 240 lb
[2023-03-21 06:37] LABS: BILIRUBIN,URINE NEGATIVE (NEGATIVE); GLUCOSE, URINE (UA) NEGATIVE (NEGATIVE); KETONES,URINE (UA) NEGATIVE (NEGATIVE); LEUKOCYTE ESTERASE, URINE NEGATIVE (NEGATIVE); NITRITE,URINE NEGATIVE (NEGATIVE); OCCULT BLOOD,URINE NEGATIVE (NEGATIVE); PROTEIN,URINE NEGATIVE (NEGATIVE); UROBILINOGEN,URINE 0.2 (NORMAL) E.U./dL (NORMAL)
[2023-03-21 06:47] LABS: CLARITY,URINE CLEAR (CLEAR)
[2023-03-21 06:48] LABS: RBC,URINE 0-5 /HPF (0-5); SQUAMOUS EPITHELIAL CELL,UR NONE SEEN (<= Few); WBC,URINE 0-3 /HPF (0-3)
[2023-03-21 06:49] LABS: BACTERIA,URINE None Seen /HPF (None Seen)
--- NOTE | 2023-03-21 07:28 | ED Physician Documentation ---
History of Present Illness - Stated complaint Stated Complaint: MALE - Chief complaint Chief Complaint: UTI - History obtained from History obtained from: Patient - Additonal information Additional information: The patient comes to the emergency department chief complaint of hematuria that occurred about 4 days ago. He states that he had just done his PT with the [facility] and was not sure if he was just really dehydrated. He was having dysuria at the same time, so he drank about 200 ounces of water to hydrate himself. He states that the appearance of blood went away, but that he is continue to have dysuria, frequency, and urgency ever since. He denies any fevers or chills. No nausea or vomiting. He states he otherwise feels perfectly fine. He does have a history of kidney stones, though usually he gets excruciating pain in his back and flank when this happens. PD PAST MEDICAL HISTORY - Past Medical History Cardiovascular: Hypertension, Pulmonary embolism Respiratory: Asthma Neuro: None, Peripheral neuropathy Endocrine/Autoimmune: None GI: None : None Psych: None Musculoskeletal: Chronic back pain Derm: Eczema - Past Surgical History Past Surgical History: Yes - Present Medications Home Medications: Ambulatory Orders Medication Instructions Recorded Confirmed Gabapentin 900 mg PO TID 10/15/17 06/04/21 Lisinopril/Hydrochlorothiazide 1 each PO DAILY 06/04/21 06/04/21 [Zestoretic 20-12.5 mg Tablet] Amox/Clav 875/125 [Augmentin 1 tablet PO Q12H 10 Days #10 tablet 06/05/21 875/125 Tab] HYDROcodone/ACET 7.5/325 JOELLE 7.5 ml PO Q6HR PRN #100 ml 01/13/22 [Lortab 7.5/325 Joelle] predniSONE [Deltasone] 60 mg PO DAILY 3 Days #9 tablet 01/13/22 - Allergies Allergies/Adverse Reactions: Allergies Allergy/AdvReac Type Severity Reaction Status Date / Time No Known Drug Allergies Allergy Verified 01/13/22 13:17 - Social History Does the pt smoke?: No Smoking Status: Never smoker Does the pt drink ETOH?: No Does the pt have substance abuse?: No - Immunizations Immunizations are current?: Yes - POLST Patient has POLST: No PD ED PE NORMAL - Vitals Vital signs reviewed: Yes - General General: Alert and oriented X 3, No acute distress, Well developed/nourished - HEENT HEENT: Atraumatic, PERRL, EOMI, Moist mucous membranes - Neck Neck: Supple, no meningeal sign - Cardiac Cardiac: RRR, No murmur - Respiratory Respiratory: No respiratory distress, Clear bilaterally - Abdomen Abdomen: Soft, Non distended, Other (Mild suprapubic tenderness, no rebound or guarding) - Derm Derm: Normal color, Warm and dry, No rash - Extremities Extremities: No deformity, No edema - Neuro Neuro: Alert and oriented X 3 - Psych Psych: Normal mood, Normal affect Results - Vitals Vitals: Oxygen O2 Source Room air - Labs Labs: Laboratory Tests 03/21/23 06:32 Urine Color YELLOW Urine Clarity CLEAR Urine pH 6.0 Ur Specific [place] 1.010 Urine Protein NEGATIVE Urine Glucose (UA) NEGATIVE Urine Ketones NEGATIVE Urine Occult Blood NEGATIVE Urine Nitrite NEGATIVE Urine Bilirubin NEGATIVE Urine Urobilinogen 0.2 (NORMAL) Ur Leukocyte Esterase NEGATIVE Urine RBC 0-5 Urine WBC 0-3 Ur Squamous Epith Cells NONE SEEN Urine Bacteria None Seen Urine Culture Comments NOT INDICATED - Rads (name of study) Ct abd/pelvis no contrast Relevant Findings:: Final report received, See rad report PD Medical Decision Making - ED course Complexity details: reviewed results, re-evaluated patient, considered differential, d/w patient ED course: The patient was worked up with urinalysis which was completely normal. He was sent for CT scan of the abdomen and pelvis. He appeared to have a small stone stuck to the wall of his bladder, near the ureteral opening, which may be causing some irritation and be responsible for some of the symptoms he is having. We have discussed the usual indications for follow-up and return. Departure - Departure Disposition: 01 Home, Self Care Clinical Impression: Kidney stone on left side Condition: Stable Instructions: ED Stone Renal Passed Follow-Up: Levi Turner MD [Provider Admit Priv/Credential] - Comments: Your urinalysis is completely normal now. Your CT scan shows a kidney stone that recently passed on the left, but is still adhered to the side of your bladder. It is possible that this is just caught on a piece of tissue and will ultimately washout on its own. This is probably the reason for your bladder irritation. You can help increase the odds of passing the stone by drinking plenty of water. If you continue to have the sense of frequent urge to urinate for more than the next week, you may follow-up with the urologist to discuss whether further investigation is warranted. Discharge Date/Time: 03/21/23 09:39
--- NOTE | 2023-03-21 09:16 | CT Report ---
PROCEDURE: ABDOMEN/PELVIS WO INDICATIONS: hematuria TECHNIQUE: A CT scan of the abdomen and pelvis was performed without the use of intravenous contrast. Images we re recorded and evaluated at appropriate window settings. Reformats: coronal and sagittal. For radiat ion dose reduction, the following was used: automated exposure control, adjustment of mA and/or kV ac cording to patient size. COMPARISON: None. FINDINGS: Image quality: Excellent. Lung bases and heart: Unremarkable. Liver: Hepatic steatosis and hepatomegaly. Gallbladder and biliary tree: No radiopaque stones or wall thickening. No biliary dilation. Spleen: No splenomegaly. Pancreas: No pancreatic ductal dilation. Adrenals: No adrenal nodule. Kidneys and ureters: No hydronephrosis. Tiny punctate nonobstructing calcification within the right k idney. No renal cystic lesion which requires follow up. No solid mass. Bowel and peritoneum: No bowel distension. No pathologic free fluid. Normal appendix. Lymph nodes: No central or retroperitoneal adenopathy. Vessels: No infrarenal aortic aneurysm. Minimal atherosclerotic vascular disease. PELVIS Reproductive organs: Unremarkable. Bladder: There is a 4 mm stone within the left posterior aspect of the urinary bladder, just medial t o the ureteral insertion. Pelvic lymph nodes: No pelvic adenopathy by size criteria. Bones: No aggressive osseous abnormality. Grade I anterolisthesis of L5 on S1 status post L5-S1 poste rior spinal fixation and discectomy. Other: Small right inguinal hernia containing fat.. IMPRESSION: 1.No hydronephrosis or obstructing renal stone. Tiny punctate nonobstructing calcification within the right kidney. 2.There is a 4 mm stone within the left posterior aspect of the urinary bladder, just medial to the l eft ureteral insertion. This may represent a recently passed stone, however there is no evidence of r esidual hydronephrosis or perinephric stranding. 3.Hepatic steatosis and hepatomegaly. Reviewed by: Wilfred Mays MD on 03/21/2023 9:15 AM PDT Approved by: Wilfred Mays MD on 03/21/2023 9:15 AM PDT Station ID: [id number]
== END 2023-03-21 09:39 | disposition home or self-care (01) ==
LOC: ED 05:56
DX: N21.0 Calculus in bladder (principal); I10 Essential (primary) hypertension
CPT/HCPCS: 81001; 87086; 99283; 99284

== ENCOUNTER 2023-06-25 17:14 | Emergency (ER) | payer OTHER ==
[2023-06-25] MEDS ORDERED: oxyCODONE 5 MG TABLET PO STA (19:09)
[2023-06-25] MEDS ORDERED: COLCHICINE 0.6 MG TABLET PO STA (19:09)
[2023-06-25] MEDS ORDERED: predniSONE 20 MG TABLET PO STA (19:09)
[2023-06-25] MEDS ORDERED: IBUPROFEN 800 MG TABLET PO STA (19:09)
--- NOTE | 2023-06-25 19:14 | ED Physician Documentation ---
History of Present Illness - Stated complaint Stated Complaint: LT FOOT PX - Chief complaint Chief Complaint: Ext Problem - History obtained from History obtained from: Patient - History of Present Illness Timing: Yesterday Pain level max: 8 Pain level now: 8 - Additonal information Additional information: 42-year-old female states he has a history of gout. He states he started developing pain in the left great toe at the first metatarsal phalangeal joint to yesterday. Increasing pain with walking. Denies any injury. There is redness and swelling. No fevers. No chills. Worse with movement, better with rest. Review of Systems Constitutional: denies: Fever, Chills Throat: denies: Sore throat Cardiac: denies: Chest pain / pressure Respiratory: denies: Cough GI: denies: Abdominal Pain, Vomiting, Diarrhea PD PAST MEDICAL HISTORY - Past Medical History Cardiovascular: Hypertension, Pulmonary embolism Respiratory: Asthma Neuro: None, Peripheral neuropathy Endocrine/Autoimmune: None GI: None : None Psych: None Musculoskeletal: Chronic back pain Derm: Eczema - Past Surgical History Past Surgical History: Yes - Present Medications Home Medications: Ambulatory Orders Medication Instructions Recorded Confirmed Gabapentin 900 mg PO TID 10/15/17 04/06/23 Lisinopril/Hydrochlorothiazide 1 each PO DAILY 06/04/21 04/06/23 [Zestoretic 20-12.5 mg Tablet] Cyclobenzaprine [Flexeril] 10 mg PO TID PRN #20 tablet 04/06/23 Ibuprofen [Motrin] 800 mg PO Q8H PRN #30 tablet 04/06/23 Oxycodone HCl/Acetaminophen 1 - 2 each PO Q6H PRN #14 tablet 04/06/23 [Percocet 5-325 mg Tablet] Pantoprazole [Protonix] 40 mg PO 04/06/23 HYDROcod/ACETAM 5/325 [[place] 5/325] 1 - 2 ea PO Q6H PRN #14 tablet 06/25/23 Indomethacin [Indocin] 50 mg PO Q8H 5 Days #30 cap 06/25/23 - Allergies Allergies/Adverse Reactions: Allergies Allergy/AdvReac Type Severity Reaction Status Date / Time No Known Drug Allergies Allergy Verified 06/25/23 17:33 - Social History Does the pt smoke?: No Smoking Status: Never smoker Does the pt drink ETOH?: No Does the pt have substance abuse?: No - Immunizations Immunizations are current?: Yes - POLST Patient has POLST: No PD ED PE NORMAL - Vitals Vital signs reviewed: Yes - General General: Alert and oriented X 3, No acute distress - HEENT HEENT: Moist mucous membranes - Derm Derm: Warm and dry - Extremities Extremities: Other (L foot - Mild swelling and erythema to the first MTP joint. There is pain with movement of the joint. There is no bony tenderness over the remainder of the foot or ankle. Neurovascular intact. The right foot is normal.) - Neuro Neuro: Alert and oriented X 3 Results - Vitals Vitals: Vital Signs - 24 hr 06/25/23 06/25/23 17:33 19:26 Temperature 36.5 C Heart Rate 88 82 Respiratory 16 16 Rate Blood Pressure 138/89 H 132/94 H O2 Saturation 98 97 Oxygen O2 Source Room air PD Medical Decision Making - ED course Complexity details: considered differential, d/w patient ED course: 42-year-old male with a history of gout, has symptoms consistent with an acute gout attack. Given steroids, colchicine, pain medication and anti-inflammatory medication. Will place him on anti-inflammatories and pain medication for home. Will have him follow-up with his PCP for further care. Ambulating without difficulty here. No indication for emergent x-ray. No bony tenderness about the foot. No swelling. No discoloration other than mild erythema at the first MTP joint. Patient counseled regarding signs and symptoms for which I believe and urgent re-evaluation would be necessary. Patient with good understanding of and agreement to plan and is comfortable going home at this time This document was made in part using voice recognition software. While efforts are made to proofread this document, sound alike and grammatical errors may occur. Departure - Departure Disposition: Home, Self Care Clinical Impression: Gout attack Qualifiers: Gout site: toe Gout etiology: unspecified cause Laterality: left Qualified Code(s): M10.9 - Gout, unspecified Condition: Good Instructions: ED Arthritis Gout, ED Diet Gout Follow-Up: ALLI CANAS DO [Primary Care Provider] - Within 1 week Prescriptions: Indomethacin [Indocin] 50 mg PO Q8H 5 Days #30 cap HYDROcod/ACETAM 5/325 [[place] 5/325] 1 - 2 ea PO Q6H PRN #14 tablet PRN Reason: Pain Comments: Your symptoms are consistent with gout. Please make sure you are drinking plenty of water at home. Your doctor can do uric acid testing on you to see if you would benefit from a gout prevention medication. This should improve over the next 3 to 4 days. If you are worsening or failing to improve, please return for repeat evaluation. Your prescriptions were sent to [facility] in [place]. I am prescribing a short course of narcotic pain medication for you. These are potentially dangerous and addictive medications that should be used carefully. These medications may constipate you. Take an [id number] stool softener (docusate) twice daily with plenty of water while taking these medications. If you go 24 hours without a bowel movement, take [id number] miralax, per package instructions. Do not drink or drive while taking these medications. If you received narcotic or sedating medications while in the emergency department, do not drive for 24 hours. Store this medication in a safe, secure place and out of reach of children. It is a violation of federal law to give or sell this medication to another person or to use in a manner other than prescribed. The ED will not refill narcotic prescriptions, including prescriptions lost or stolen. To dispose of unwanted medications: 1. [facility] at [address] in [place] has a medication drop box. They accept prescription medications (in pill form) Sunday through Sunday 9:00 a.m. to 5:00 p.m. 2. [facility] [employer] accepts prescription medications (in pill form only) for disposal year round. Call for more information. 3. Contact the [facility] for the next [facility] sponsored prescription drug collection event. , [phone], or [phone]; Forms: PCP List Discharge Date/Time: 06/25/23 19:27
[2023-06-25 19:30] VITALS: BP 132/94; O2SAT 97
== END 2023-06-25 19:27 | disposition home or self-care (01) ==
LOC: ED 17:14
DX: M10.9 Gout, unspecified (principal); I10 Essential (primary) hypertension
CPT/HCPCS: 99282; 99283; A9270; J7512